=== PATIENT | male | born 1975 | race Caucasian/White ===

== ENCOUNTER 2020-07-31 09:11 | Observation (INO) | payer OTHER ==
[~2020-07-31] VITALS: Ht 167.6 cm; Wt 91.6 kg
[2020-07-31 09:18] VITALS: BP 131/82
[2020-07-31] MEDS ORDERED: COZAAR 25 MG TA25 M1 PO (09:20)
[2020-07-31 09:41] LABS: HEMATOCRIT 46.1 % (42.0-52.0); HEMOGLOBIN 15.6 gm/dL (14.0-18.0); MCH 31.5 pg (26.0-34.0); MCHC 33.9 g/dL (28.0-37.0); MCV 92.9 fL (80.0-100.0); MPV 9.8 fl. (7.2-11.1); RBC 4.96 mil/uL (4.50-6.00); RDW-CV 12.7 % (10.5-14.5)
[2020-07-31 09:51] LABS: CALCIUM 8.9 mg/dL (8.5-10.1); POTASSIUM 4.4 mmol/L (3.5-5.1)
[2020-07-31 09:56] LABS: ALBUMIN 4.3 g/dL (3.4-5.0); TOTAL BILIRUBIN 0.6 mg/dL (<0.1-1.0); TOTAL PROTEIN 8.4 g/dL (6.4-8.2)
--- NOTE | 2020-07-31 11:36 | NUR ---
RN MADE AWARE BY PT'S REGARDING PT'S "HEART RATE DROPPED INTO THE 40S AND HE BECAME DIAPHORETIC AND NAUSEATED". RN INFORMED DR. GALLAGHER.
[2020-07-31 12:26] VITALS: BP 120/65
[2020-07-31 13:45] VITALS: BP 123/60
[2020-07-31] MEDS ORDERED: LISINOPRIL10 MG PO (17:50)
[2020-07-31] MEDS ORDERED: OMEPRAZOLE40 MG PO (17:51)
--- NOTE | 2020-07-31 18:58 | NUR ---
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
[2020-07-31 20:00] VITALS: BP 112/60
[2020-08-01] VITALS (19 sets, daily range): BP systolic 96–121; BP diastolic 47–81
[2020-08-01 04:44] LABS: HEMATOCRIT 41.3 % (42.0-52.0); HEMOGLOBIN 13.9 gm/dL (14.0-18.0); MCH 31.5 pg (26.0-34.0); MCHC 33.7 g/dL (28.0-37.0); MCV 93.4 fL (80.0-100.0); MPV 10.4 fl. (7.2-11.1); RBC 4.42 mil/uL (4.50-6.00); RDW-CV 12.9 % (10.5-14.5)
[2020-08-01 04:50] LABS: CALCIUM 8.9 mg/dL (8.5-10.1); CREATININE 1.2 mg/dL (0.6-1.3); POTASSIUM 4.6 mmol/L (3.5-5.1)
--- NOTE | 2020-08-01 11:12 | EKG ---
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 : 1975 Requested By: Magdiel Willard Order Number: [id number] MD: Papo Patterson Measurements Intervals Roy Rate: 70 P: 41 FL: 127 QRS: 49 QRSD: 103 T: 94 QT: 399 QTc: 431 Interpretive Statements Sinus rhythm Nonspecific T abnormalities, lateral leads Baseline wander in lead(s) II,III,aVF No previous ECG available for comparison Electronically Signed On 08-01-2020 11:12:47 CDT by Papo Patterson [email or web address] <ELECTRONICALLY SIGNED> By: Paop Patterson MD, [facility] 08/01/20 1112 3 3 Papo Patterson MD, [facility] /EPI
--- NOTE | 2020-08-01 11:23 | EKG ---
[place] [address] ELECTROCARDIOGRAM REPORT Name: VADIM ADLER Room: [address] ADM IN M.R.#: [id number] Admission: 07/31/20 Attend Phys: Lee López Discharge: Date of : 73 Date of Service: 07/31/20 1230 Report #: [id number] THIS REPORT FOR: //name// [facility] ED Test Date: 2020-07-31 Test Time: 12:30:36 Pat Name: VADIM ADLER Department: Room: [address] Gender: M Third Hand: NICOLASA : 1975 Requested By: Magdiel Willard Order Number: [id number] Vane MD: Papo Patterson Measurements Intervals [place] Rate: 52 P: 12 ND: 123 QRS: -8 QRSD: 103 T: 60 QT: 428 QTc: 398 Interpretive Statements Sinus bradycardia Compared to ECG 07/31/2020 09:14:37 rate has slowed Electronically Signed On 08-01-2020 11:23:05 CDT by Papo Patterson [email or web address] <ELECTRONICALLY SIGNED> By: Papo Patterson MD, FAC 08/01/20 1123 1230 1230 Papo Patterson MD, [facility] /EPI
--- NOTE | 2020-08-01 11:26 | EKG ---
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
--- NOTE | 2020-08-01 12:49 | NUR ---
Pt is A&O. Resides at home with SO. Active and independent. No DME. No hx of HH or SNF. Cards following, plan cath today. Anticipate dc in 1-2 days. No needs anticipated. Following.
--- NOTE | 2020-08-01 14:02 | NUR ---
patient given ASA and NS started through IV in left AC. matlab developer here to take him.
--- NOTE | 2020-08-01 16:04 | NUR ---
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
--- NOTE | 2020-08-01 19:48 | CARD ---
[address] [address] CARDIAC CATH REPORT Name: VADIM ADLER Room: [address] IN .R.#: [id number] Admission: 07/31/20 Attend Phys: Char Vazquez Discharge: Date of : 73 Report #: [id number] THIS REPORT FOR: cc: FAM - No family physician/PCP FAM - No family physician/PCP Papo Patterson MD [facility] ~ APPROVED REPORT Study performed: 08/01/2020 12:57:58 Patient Details Patient Status: In-Patient Room #: The patient is a 44 year-old male Event Personnel Papo Patterson Storage Facility Housekeeper, Aleah Ruiz RN RN, Vadim Cabrera FURNACE CARETAKER Monitor, Scottie Basurto RTR Scrub, Papo Patterson Meter Engineer Procedures Performed cath pci Indication Non-STEMI , Chest pain Risk Factors Hypertension Admission/Lab Medications/Medications given during procedure Glycoprotein IllbIlla Inhibitors, Heparin Unfract. Procedure Narrative The patient was brought electively to the Cardiac Catheterization Laboratory and was prepped and draped in a sterile manner. The right wrist was infiltrated with 1% Lidocaine subcutaneous anesthesia. A Slender Glidesheath sheath was inserted into the right brachial artery. Coronary angiography was performed using coronary diagnostic catheters. The right coronary system was accessed and visualized with a JR4 6fr catheter. The left coronary system was accessed and visualized with a Diagnostic - JL4 catheter. The left ventricle was accessed and visualized with a PC: Pig 6fr catheter. Left ventricular/Aortic Valve gradient assessed via catheter pullback. Left ventriculogram was performed in ARELLAN[place] [address] CARDIAC CATH REPORT Name: VADIM ADLER Room: [address] IN [facility]#: [id number] Admission: 07/31/20 Attend Phys: Char Vazquez Discharge: Date of : 73 Report #: [id number] was deployed with a 6 Fr Vasc-Band Reg 24cm. The patient tolerated the procedure well and there were no complications associated with the procedure. There was no hematoma. Intraoperative Conscious Sedation Sedation start time: 1439 Case end Time: 1517 Fentanyl 25 mcg Versed 2 mg Fluoro Time: 6.0 minutes Dose: DAP 99335 cGycm2 1364 mGy Contrast Type and Amount: Omnipaque 170 ml Coronary Angiography The patient's coronary anatomy is right dominant. Diagnostic Cath Left Main 0% stenosis LAD 0% stenosis Circumflex 50% mid stenosis OM3 70% ostial stenosis Right Coronary Mid RCA appeared recently occluded with 100% stenosis after the RV branch. 50% distal stenosis. Distal RCA filled by retrograde collaterals from the left coronary. RPLV 50% ostial stenosis Ramus large vessel with 30% mid stenosis Left Ventriculography The left ventricular ejection fraction is estimated to be 55-60%. Left ventricular wall motion abnormalities are present. There is no mitral insufficiency. Mild inferior wall hypokinesis. Hemodynamics The aortic pressure is 103/54 mmHg with a mean of 71 mmHg. The left ventricular pressure is 88/15 mmHg with a mean of mmHg. The left ventricular end diastolic pressure is 23 mmHg. There was no gradient across the aortic valve upon pullback. Pullback from the left ventricle to the aorta revealed no gradient across the aortic valve. PCI Technique Lesion Anticoagulation was achieved with Heparin. bolus of IV aggrastat given Percutaneous coronary intervention was performed on the mid right coronary artery. The lesion stenosis [place] [address] CARDIAC CATH REPORT Name: GEORGEARACELISCARMENZAVADIM Room: [address] IN [facility]#: [id number] Admission: 07/31/20 Attend Phys: Char Vazquez Discharge: Date of : 73 Report #: [id number] 100% with MICHAELA 0 flow. A 6FR JCR 4 100CM Guide Catheter was used to engage the rca ostium. A IG: BMW 190cm Interventional Guidewire was used to cross the lesion. BALLOON DILATION A Balloon catheter Trek RX 2.5 X 8 was inserted and inflated up to 9.00atm for 10seconds. Repeat angiography revealed the following post-dilatation results: 80% stenosis. Additional Inflation: 12.00atm for 11seconds. Additional Inflation: 14.00atm for 9seconds. 16 zion for 10 sec 16atm for 9 sec STENT DEPLOYMENT A drug-eluting stent Gonzalo RX Stent 3.0X34mm was inserted and inflated up to 10.00atm for 19seconds. Repeat angiography revealed the following post-stent deployment results: 0% stenosis. Final angiography reveals 0 % stenosis with MICHAELA 3 flow. Conclusion 1. Recent occlusion of the mid RCA 2. LVEF 55-60% 3. successful placement of a drug eluting stent in the mid RCA Recommendations Cardiac Rehabilitation Referral Aggressive Medical Therapy Medications Administered Prasugrel <ELECTRONICALLY SIGNED> By: Papo Patterson MD, FACC 08/01/201946 46 46Damorales Patterson MD, FACC /INF
--- NOTE | 2020-08-01 20:08 | NUR ---
patient resting in room with family at bedside, iv fluids running, senior production manager on, vitals being taken q 15 minutes. report given to caustic cresylate shift superintendent nurse, who will take off wrist band from cardiac cath procedure
[2020-08-02] VITALS: BP 105/65
[2020-08-02 04:00] VITALS: BP 116/82
[2020-08-02 05:20] LABS: HEMATOCRIT 40.3 % (42.0-52.0); HEMOGLOBIN 13.5 gm/dL (14.0-18.0); MCH 31.1 pg (26.0-34.0); MCHC 33.5 g/dL (28.0-37.0); MCV 92.9 fL (80.0-100.0); MPV 10.4 fl. (7.2-11.1); RBC 4.34 mil/uL (4.50-6.00); RDW-CV 12.6 % (10.5-14.5); WBC 7.3 thou/uL (4.0-11.0)
[2020-08-02 05:33] LABS: CALCIUM 8.2 mg/dL (8.5-10.1); CREATININE 1.1 mg/dL (0.6-1.3)
[2020-08-02 05:54] LABS: TROPONIN-I LEVEL 16.09 ng/mL (<0.06)
[2020-08-02] MEDS ORDERED: CARVEDILOL3.125 MG PO (08:20)
[2020-08-02] MEDS ORDERED: EFFIENT10 MG PO (08:20)
[2020-08-02] MEDS ORDERED: LIPITOR 40 MG T40 M1 PO (08:20)
[2020-08-02] MEDS ORDERED: BAYER CHEWABLE81 MG PO (08:30)
[2020-08-02 09:11] VITALS: BP 134/52
--- NOTE | 2020-08-02 09:12 | NUR ---
IV AND TELE DISCONTINUED. PT UNDERTSANDS ALL FOLLOW UP ORDERS, WILL DISCHARGE TO HOME.
--- NOTE | 2020-08-02 09:40 | EKG ---
[place] [address] ELECTROCARDIOGRAM REPORT Name: KIERACARMENZAVADIM MALIA Room: [address] ADM IN M.R.#: [id number] Admission: 07/31/20 Attend Phys: Lee López Discharge: Date of : 73 Date of Service: 08/02/20 0751 Report #: [id number] THIS REPORT FOR: //name// [facility] Test Date: 2020-08-02 Test Time: 07:51:15 Pat Name: VADIM ADLER Department: Room: [address] Gender: M Client Specialist: CHRISTOS : 1975 Requested By: Papo Patterson Order Number: [id number] Reading MD: Papo Patterson Measurements Intervals [place] Rate: 80 P: 37 GA: 129 QRS: -42 QRSD: 88 T: -19 QT: 378 QTc: 436 Interpretive Statements Sinus rhythm Inferior infarct, age indeterminate Compared to ECG 08/01/2020 10:07:26 Myocardial infarct finding still present Electronically Signed On 08-02-2020 9:40:10 CDT by Papo Patterson [email or web address] <ELECTRONICALLY SIGNED> By: Papo Patterson MD, FAC 08/02/20 0940 0751 0751 Papo Patterson MD, [facility] /EPI
[2020-08-02 10:14] LABS: CHOLESTEROL ND mg/dL (<200); SERUM ASSESSMENT ND; TRIGLYCERIDE ND mg/dL (<150)
[2020-08-02 10:15] LABS: HDL CHOLESTEROL ND mg/dL (>40); LDL CHOLESTEROL ND mg/dL (<100); VLDL ND mg/dL (<40)
[2020-08-02 10:29] LABS: TC:HDL ND Ratio (Not establshd)
[2020-08-02 10:40] LABS: CHOLESTEROL 219 mg/dL (<200); HDL CHOLESTEROL 36 mg/dL (>40); LDL CHOLESTEROL 128 mg/dL (<100); TC:HDL 6.1 Ratio (Not establshd); TRIGLYCERIDE 275 mg/dL (<150); VLDL 55 mg/dL (<40)
[2020-08-02 10:42] LABS: SERUM ASSESSMENT Clear
--- NOTE | 2020-08-02 13:38 | CON ---
[address] [address] CONSULTATION Name: VADIM ADLER Room: [address] Marissa Ritter#: [id number] Admission: 07/31/20 Attend Phys: Char Vazquez Discharge: 08/02/20 Date of : 73 Report #: [id number] THIS REPORT FOR: cc: FAM - No family physician/PCP FAM - No family physician/PCP Papo Patterson MD [facility] ~ DATE OF SERVICE: 07/31/2020 CARDIOLOGY CONSULTATION HISTORY OF PRESENT ILLNESS: The patient is a 44-year-old single white male who I was asked to see in the Emergency Room today after he complained of chest pain. The patient has no previous history of heart disease. He stays very active. He has had no previous cardiac evaluation. He was doing well until he awakened at 4:00 a.m. with a pressure in his chest that went into his back and shoulders. It was better if he sat up. He denied any diaphoresis, shortness of breath, or nausea. He had had no recent fever or cough. Denied any blood in the stool. He denied any belch with the episode. After persisted for a couple of hours, his girlfriend finally drove him to the Emergency Room. He was given a GI cocktail and aspirin. The pain is somewhat better now. He denies any recent trauma to his chest or rash. He denies exertional dyspnea, palpitations, syncope or peripheral edema. PAST MEDICAL HISTORY: He has had knee surgery, hypertension. MEDICATIONS: His only medications include lisinopril and Prilosec. No history of diabetes or hyperlipidemia. ALLERGIES: He is on no known drug allergies. FAMILY HISTORY: His brother had diabetes. 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 No smoking. Rarely drinks beer. REVIEW OF SYSTEMS: No history of stroke. He had asthma as a child. No history of liver disease, kidney disease, cancer, psychiatric illness, chronic skin condition. PHYSICAL EXAMINATION: GENERAL: Revealed a middle-aged male, who appeared in no distress. VITAL SIGNS: He had a blood pressure 130/80, pulse 70, he is afebrile. HEENT: He was anicteric. Conjunctivae pink. Mucous membranes are moist. NECK: Veins nondistended. No carotid bruits. [place] [address] CONSULTATION Name: VADIM ADLER [address] [id number] Admission: 07/31/20 Attend Phys: Char Vazquez Discharge: 08/02/20 Date of : 73 Report #: [id number] CHEST: Clear to auscultation. CARDIOVASCULAR: Regular rate without murmurs. ABDOMEN: Soft. EXTREMITIES: Had no edema. Posterior tibial pulse 2+ bilaterally. SKIN: Cool and dry. NEUROLOGIC: Nonfocal. LYMPH: No adenopathy. MUSCULOSKELETAL: No joint effusion. RADIOLOGICAL DATA: ECG showed a sinus rhythm. There was nonspecific ST-segment changes with T-wave inversion in aVL. His workup, he had a portable chest x-ray this morning that showed normal heart size and clear lung catherine. LABORATORY WORK: Sodium 140, creatinine is 1.0. His SGOT was 103, SGPT 197, bilirubin 0.6, alkaline phosphatase 58. His troponin is less than 0.06. Hemoglobin 15.6. IMPRESSION AND RECOMMENDATIONS: 1. Chest pain, atypical for angina. No evidence of acute myocardial infarction. I think it is reasonable at this time to discharge the patient and have him return for a stress echocardiogram. 2. Hypertension. The patient is on RITESH inhibitor. 3. Elevated liver function studies. Possibly related to alcohol intake. <ELECTRONICALLY SIGNED> By: Papo Patterson MD, FACC 08/02/20 1338 1032 2112Dantonina Patterson MD, FACC /nt
== END 2020-08-02 10:13 | disposition home or self-care (01) ==
LOC: M.ERS 09:11 → M.TBA-ER 10:08 → M.2W 12:03 → M.TBA-ER 12:03 → M.2W 12:03
PROVIDERS: Emergency Medicine; Family Medicine; Internal Medicine Cardiovascular Disease; ADMIT Internal Medicine; ATTEND Internal Medicine
DX: I21.4 Non-ST elevation (NSTEMI) myocardial infarction (principal); Z20.822 Contact with and (suspected) exposure to COVID-19; R74.8 Abnormal levels of other serum enzymes; K21.9 Gastro-esophageal reflux disease without esophagitis; I10 Essential (primary) hypertension; E66.9 Obesity, unspecified; R11.0 Nausea; E78.5 Hyperlipidemia, unspecified; R79.89 Other specified abnormal findings of blood chemistry; Z79.899 Other long term (current) drug therapy; Z79.82 Long term (current) use of aspirin